=== PATIENT | male | born 1980 | race Caucasian/White ===

== ENCOUNTER 2016-06-08 17:58 | Emergency (ER) | payer OTHER ==
[~2016-06-08] VITALS: Ht 175.3 cm; Wt 122.5 kg
[2016-06-08 21:16] VITALS: BP 136/84
== END 2016-06-08 21:16 | disposition home or self-care (01) ==
LOC: ED 17:58
DX: S90.111A Contusion of right great toe without damage to nail, initial encounter (principal); X58.XXXA Exposure to other specified factors, initial encounter; Y93.89 Activity, other specified; Y99.8 Other external cause status; Y92.89 Other specified places as the place of occurrence of the external cause